=== PATIENT | male | born 1985 | race Caucasian/White ===

== ENCOUNTER 2021-04-21 08:20 | Emergency (ER) | payer SELFPAY ==
[~2021-04-21] VITALS: Ht 182.9 cm; Wt 105.0 kg
[2021-04-21] MEDS ORDERED: NAPROXEN500 MG PO (09:20)
[2021-04-21 09:39] VITALS: BP 135/88
== END 2021-04-21 09:40 | disposition home or self-care (01) | DRG 563 ==
LOC: ED 08:20
DX: S43.402A Unspecified sprain of left shoulder joint, initial encounter (principal); X50.3XXA Overexertion from repetitive movements, initial encounter; Y93.H1 Activity, digging, shoveling and raking; Y92.007 Garden or yard of unspecified non-institutional (private) residence as the place of occurrence of the external cause